=== PATIENT | male | born 1970 | race Caucasian/White ===

== ENCOUNTER 2020-10-26 10:28 | Outpatient (CLI) | payer SELFPAY ==
[2020-10-26 10:58] LABS: Alanine Aminotransferase 33 U/L (4-50); Albumin Level 4.5 g/dL (3.5-5.1); Alkaline Phosphatase 80 U/L (38-126); Anion Gap 9 mmol/L (8-16); Aspartate Amino Transferase 32 U/L (17-59); Bilirubin,Total 1.1 mg/dL (0.2-1.3); Blood Urea Nitrogen 16 mg/dL (9-20); Calcium 9.5 mg/dL (8.4-10.2); Carbon Dioxide 25 mmol/L (22-30); Chloride 106 mmol/L (98-107); Cholesterol 209 mg/dL (0-200); Estimated Glomerular Filt Rate > 60; Glucose 110 mg/dL (75-110); HDL Direct 51 mg/dL; Sodium 140 mmol/L (137-145); Triglycerides 112 mg/dL (<150)
[2020-10-26 11:10] LABS: LDL Cholesterol Direct 117 mg/dL
[2020-10-26 11:29] LABS: Prostate Specific Antigen 0.2 ng/mL (< OR = 4.0)
== END 2020-10-26 10:29 | disposition home or self-care (01) ==
PROVIDERS: PCP Internal Medicine; Visit Provider Nurse Practitioner
DX: N40.1 Benign prostatic hyperplasia with lower urinary tract symptoms (principal); N13.8 Other obstructive and reflux uropathy; Z12.5 Encounter for screening for malignant neoplasm of prostate
CPT/HCPCS: 36415; 80053; 80061; 84153; G0103

== ENCOUNTER 2020-11-24 15:03 | Outpatient (CLI) | payer SELFPAY ==
[2020-11-24 15:19] LABS: Basophils Percent Auto 0.6 % (0.2-1.2); Eosinophils Absolute Auto 0.2 K/mm3 (0-0.3); Eosinophils Percent Auto 2.4 % (0-4.4); Hematocrit 46.8 % (42.0-52.0); Hemoglobin 15.5 g/dL (14.0-18.0); Immature Granulocyte Absolute 0.09 K/mm3 (0.00-0.031); Immature Granulocyte Percent A 1.3 % (0-0.5); Lymphocytes Absolute Auto 1.97 K/mm3 (0.9-3.2); Lymphocytes Percent Auto 29.1 % (18.3-44.2); Mean Corpuscular HGB Conc 33.1 g/dl (32-36); Mean Corpuscular Hemoglobin 29.4 pg (26-34); Mean Corpuscular Volume 88.6 fl (80-100); Monocytes Absolute Auto 0.6 K/mm3 (0.1-0.6); Monocytes Percent Auto 9.5 % (2.6-8.5); Neutrophils Absolute Auto 3.9 K/mm3 (1.3-6.7); Neutrophils Percent Auto 57.1 % (45.5-73.1); Platelet Count Result 225 k/mm3 (150-375); Red Blood Count 5.28 M/mm3 (4.6-6.20); Red Cell Distribution Width 13.2 % (11.5-14.5); White Blood Count 6.8 K/mm3 (4.5-10.0)
== END 2020-11-24 15:04 | disposition home or self-care (01) ==
PROVIDERS: PCP Internal Medicine; Visit Provider Nurse Practitioner
DX: N40.1 Benign prostatic hyperplasia with lower urinary tract symptoms (principal); N13.8 Other obstructive and reflux uropathy
CPT/HCPCS: 36415; 85025

== ENCOUNTER 2022-04-10 13:15 | Emergency (ER) | payer SELFPAY ==
--- NOTE | ~2022-04-10 | XR_ITS ---
EXAMINATION: XR chest 2V 04/10/2022 13:37 INDICATION: Cough and shortness of breath. Fever. PROCEDURE: PA and lateral views of the chest COMPARISON: No prior studies for comparison. FINDINGS: Subtle bibasilar infiltrates. The cardiomediastinal silhouette is within normal limits. Th ere are no pleural effusions. There is no pneumothorax suspected. IMPRESSION: 1: Subtle bibasilar infiltrates which may represent atelectasis or developing pneumonia. Reviewed, dictated and finalized at location [facility]
[2022-04-10 13:28] VITALS: BP 140/100; PULSE 93; RESP 16; TEMP 36.9; O2SAT 95
--- NOTE | 2022-04-10 14:09 | ED.GENADULT ---
HPI - General Adult General Chief complaint: Upper Respiratory Infection Stated complaint: fever, cough,shortness of breath Source: patient and family Mode of arrival: ambulatory Limitations: no limitations History of Present Illness HPI narrative: Patient presents for evaluation of sick symptoms. He indicates on Thanksgiving he developed a cough and fever. Symptoms seemed to get better but then returned in the middle of this past week. He states his cough that is productive of brown sputum. He has exertional dyspnea and wheezing. No underlying history of asthma or COPD. Temperature has gotten as high as 104.0 per his reports. 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 He does not smoke. He took a home COVID test which was negative. His encouraged him to receive a medical evaluation yesterday, although he declined. He was agreeable to such today. Related Data Home Medications Medication Instructions Recorded Confirmed bethanechol chloride 10 mg tablet mg 04/10/22 dutasteride 0.5 mg capsule mg PO 04/10/22 tamsulosin 0.4 mg capsule mg PO 04/10/22 Allergies Allergy/AdvReac Type Severity Reaction Status Date / Time Penicillins AdvReac Unknown blood Verified 04/10/22 13:27 counts drops Review of Systems Review of Systems: CONSTITUTIONAL: Reports fever. Denies chills, or sweats. EYES: Denies visual changes, redness, or discharge. ENT: Denies rhinorrhea, congestion, sore throat, or otalgia. CARDIOVASCULAR: Denies chest pain, palpitations, or edema. RESPIRATORY:Reports productive cough of brown sputum, exertional dyspnea and wheezing GASTROINTESTINAL: Denies abdominal pain, nausea, vomiting, or diarrhea. GENITOURINARY: Denies dysuria or hematuria. SKIN: Denies rash or itching. MUSCULOSKELETAL: Denies back pain, joint pain, or myalgia. NEUROLOGIC: Denies headache, numbness, dizziness, or weakness. PSYCHIATRIC: Denies anxiety or depression. [facility] Past Medical History Medical History (Updated 04/10/22 @ 14:52 by Shay Real, JANENT, ) BPH w urinary obs/LUTS Urinary bladder disorder Surgical History Surgical History History of cystoscopy History of foot surgery Family History Family History Sibling Heart abnormality Mother Family history non-contributory Social History Social History Smoking status: Never smoker Second hand tobacco smoke exposure: No Alcohol intake: never Substance use: never Living arrangements: with family Additional occupation/education comments: drives a school bus Gender identity (if verbalized by the patient): Male Sexual Orientation (if Verbalized by the Patient): Straight or Heterosexual Spiritual care concerns: No Exam Narrative: GENERAL: Well-appearing, well-nourished, and in no acute distress. HEAD: Normocephalic, atraumatic. EYES: PERRLA and EOMI. ENT: Nares clear, no rhinorrhea or epistaxis. Mucous membranes moist. Oropharynx without tonsillar hypertrophy exudate or other lesions. Bilateral TMs pearly laboy nonbulging NECK: Supple. No adenopathy or masses. No carotid bruits or JVD CHEST: Wheezing with inspiration and expiration in posterior lung juarez bilaterally HEART: Regular rate and rhythm. No murmur heard. Normal peripheral pulses. ABDOMEN: Soft, nontender, nondistended, normal active bowel sounds. EXTREMITIES: Normal range of motion. No edema. SKIN: Warm, dry, no rash. NEURO: No focal deficits. Alert and oriented x3. PSYCH: Normal mood and affect. Course Course Emergency Course: THIS IS A 51-YEAR-OLD MALE WHO PRESENTED FOR EVALUATION OF COUGH AND FEVER. CHEST X-RAY SHOWED PNEUMONIA. INFLUENZA WAS NEGATIVE. SATURATIONS WERE NORMAL. ACCEPTABLE TO MANAGE OUTPATIENT WITH AZITHROMYCIN AND DOXYCYCLINE DUE TO
== END 2022-04-10 15:03 | disposition home or self-care (01) ==
PROVIDERS: Emergency Provider Nurse Practitioner; PCP Nurse Practitioner
DX: J18.9 Pneumonia, unspecified organism (principal)
CPT/HCPCS: 71046; 87804; 99213; G0463

== ENCOUNTER → 2022-10-31 10:34 | Outpatient (CLI) | payer SELFPAY ==
--- NOTE | ~2022-10-31 | US_ITS ---
Testicular ultrasound with doppler. Indication: Swelling. Technique: Real-time sonography the scrotum was performed. Color flow Doppler and Doppler spectral an alysis were performed. Findings: The testes are homogeneous in echotexture bilaterally. There is no evidence of an intrates ticular mass. The right testis measures 5.2 x 2.6 x 3.0 cm and the left 4.9 x 2.4 x 3.1 cm. There is color-flow seen to both testes. Arterial and venous spectral waveforms are seen in both testes. There is no sonographic evidence of torsion. There is a 5 mm epididymal head cyst or spermatocele at the l eft epididymal head. There is a 1.3 cm right epididymal head cyst or spermatocele. Impression: Bilateral epididymal head cysts or spermatoceles, as detailed above. No testicular mass or torsion. Reviewed, dictated and finalized at [facility]. Impression: Bilateral epididymal head cysts or spermatoceles, as detailed above. No testicular mass or torsion.
== END ==
PROVIDERS: PCP Internal Medicine; Visit Provider Nurse Practitioner
DX: M79.89 Other specified soft tissue disorders (principal); N50.3 Cyst of epididymis
CPT/HCPCS: 76870; 93976